=== PATIENT | female | born 1975 | race African-American/Black ===

== ENCOUNTER → 2016-09-06 | Outpatient (CLI) | payer MEDICAID ==
[~2016-09-06] MED LIST: ALBUTEROL0.83 MG/ML INH; ALBUTEROL17 GM; B12 5,000 MCG1 EACH; BP MED UNKNOWN; FLEXERIL10 MG PO; FOLIC ACID10 GM; IRON1 TAB; NAPROSYN500 MG PO; VICODIN
--- NOTE | ~2016-09-06 | CR230 ---
[facility]. [facility] A Service of [facility] & [facility] RADIOLOGY TEXT RESULTS PATIENT: BARRY RIDDLE LOCATION: [facility] : 73 UNIT #: [id number] AGE: [address]: Edda Blas SEX: F ORDER DR: [id number] [address] [id number] MR#: [id number] Acc #: [id number] NAME: BARRY RIDDLE : 1975 SEX: F STUDY DATE/TIME: 09/06/2016 9:34 UNIT: [facility] ROOM: STUDY DESCRIPTION: CR Shoulder Min 2 View Rt Attending Physician: Edda Blas A.P.R.N. Referring Physician: Edda Blas A.P.R.N. Ordering Physician: Edda Blas A.P.R.N. Primary Care Physician: Edda Blas A.P.R.N. MEDICAL IMAGING REPORT This report is preliminary unless electronic signature is present. EXAM Right shoulder 3 views 09/06/2016 HISTORY Right shoulder pain with lifting and at rest for 2 months. No known injury. FINDINGS AP view with internal and external rotation of the shoulder girdle shows satisfactory relationship of the humeral head and glenoid fossa. The joint space is normal. There is no identifiable fracture or dislocation or bony destructive process about the shoulder girdle anatomy. The acromioclavicular joint is normal. There is no radiopaque foreign body in the region. IMPRESSION Normal shoulder. Dictated by... Figueroa Rolon M.D. THIS IS AN ELECTRONICALLY VERIFIED REPORT Figueroa Rolon M.D. at 09/07/2016 3:39 PM KRT/pcl TD: 09/06/2016 21:25 JOB #: [id number] MEDICAL IMAGING REPORT Page 1 of 1
== END | disposition home or self-care (01) ==
LOC: SRAD 09:28
DX: M25.511 Pain in right shoulder (principal)
CPT/HCPCS: 73030

== ENCOUNTER 2016-11-10 12:34 | Emergency (ER) | payer MEDICAID ==
[~2016-11-10 12:34] MED LIST changes: -B12 5,000 MCG1 EACH; -FOLIC ACID10 GM
[2016-11-10] MEDS ORDERED: FOLIC ACID10 GM (12:49)
[2016-11-10] MEDS ORDERED: B12 5,000 MCG1 EACH (12:49)
[2016-11-10 14:03] LABS: URINE SOURCE CLEAN CATCH
[2016-11-10 14:07] LABS: URINE APPEARANCE CLEAR; URINE BILIRUBIN NEG (NEG); URINE BLOOD NEG (NEG); URINE COLOR YELLOW; URINE GLUCOSE NEG (NORM); URINE KETONE NEG (NEG); URINE LEUKOCYTE ESTERASE NEG (NEG); URINE NITRATE NEG (NEG); URINE PROTEIN NEG (NEG); URINE SPECIFIC GRAVITY 1.015 (1.003-1.035); URINE UROBILINOGEN 0.2 MG/DL (NORM)
[2016-11-10 14:17] LABS: AMPHETAMINE NEG (NEG); BARBITURATES NEG (NEG); BENZODIAZEPINES NEG (NEG); COCAINE NEG (NEG); MARIJUANA NEG (NEG); OPIATES NEG (NEG); TRICYCLIC ANTIDEPRESSANTS NEG (NEG); U METHADONE NEG (NEG)
[2016-11-10 14:22] LABS: MICRO INDICATED? NO
[2016-11-10 14:26] LABS: BASOPHIL# 0.1 X10e3 (0-0.3); BASOPHIL% 0.9 % (0-2.5); EOSINOPHIL# 0.1 X10e3 (0-0.7); EOSINOPHIL% 1.9 % (0.0-7.0); HEMATOCRIT 26.1 % (35.0-45.0); HEMOGLOBIN 7.5 gm/dL (12.0-16.0); LYMPHOCYTE% 41.9 % (17.0-45.0); MEAN CELL VOLUME 58.9 FL (83-96); MEAN CORPUSCULAR HGB CONC 28.9 g/dL (30-36); MONOCYTE# 0.4 X10e3 (0-1.0); MONOCYTE% 6.2 % (3.0-12.0); NEUTROPHIL# 3.5 X10e3 (1.5-7.1); NEUTROPHIL% 49.1 % (40-75); PLATELET COUNT 384 X10e3 (140-420); RED BLOOD COUNT 4.43 X10e (3.90-5.30); RED CELL DISTRIBUTION WIDTH 20.1 % (11.0-15.5); WHITE BLOOD COUNT 7.1 X10e3 (4.0-10.5)
[2016-11-10 14:30] LABS: DIFF IND YES
[2016-11-10 14:32] LABS: BUN/CREATININE RATIO 18.57; CALCIUM SERUM 8.7 mg/dL (8.4-10.2); CREATININE SERUM 0.7 mg/dL (0.6-1.4); GLOM FILT RATE Estimated 123.9 mL/min (>60); MAGNESIUM 2.1 mg/dL (1.6-3.0); POTASSIUM 4.7 mmol/L (3.5-5.1)
[2016-11-10 15:04] LABS: PLATELET ESTIMATE NORMAL (NORMAL)
== END 2016-11-10 14:50 | disposition home or self-care (01) ==
LOC: SED 12:34
PROVIDERS: Emergency Medicine
DX: G89.29 Other chronic pain (principal); M79.605 Pain in left leg; M79.604 Pain in right leg; M54.2 Cervicalgia; I10 Essential (primary) hypertension; J45.909 Unspecified asthma, uncomplicated; Z79.899 Other long term (current) drug therapy
CPT/HCPCS: 36415; 80048; 80307; 81003; 83735; 84703; 85025; 96372; 99283; J1885; J2270